=== PATIENT | female | born 1940 | race Native Hawaiian/Other Pacific Islander ===

== ENCOUNTER 2019-03-05 07:45 | Day surgery (SDC) | payer OTHER ==
[~2019-03-05] VITALS: Ht 170.2 cm; Wt 80.7 kg
== END 2019-03-05 09:28 | disposition home or self-care (01) ==
LOC: OR 07:45
PROC: 3E0U33Z Introduction of Anti-inflammatory into Joints, Percutaneous Approach (ICD-10-PCS; principal; 2019-03-05)
PROC: 3E0U3BZ Introduction of Anesthetic Agent into Joints, Percutaneous Approach (ICD-10-PCS; 2019-03-05)
DX: M53.3 Sacrococcygeal disorders, not elsewhere classified (principal); M46.1 Sacroiliitis, not elsewhere classified
CPT/HCPCS: J1020; J3490

== ENCOUNTER 2019-09-23 08:34 | Day surgery (SDC) | payer OTHER ==
[~2019-09-23] VITALS: Ht 170.2 cm; Wt 79.4 kg
== END 2019-09-23 10:30 | disposition home or self-care (01) ==
LOC: OR 08:34
PROC: 3E0T3TZ Introduction of Destructive Agent into Peripheral Nerves and Plexi, Percutaneous Approach (ICD-10-PCS; principal; 2019-09-23)
PROC: BR16YZZ Fluoroscopy of Lumbar Facet Joint(s) using Other Contrast (ICD-10-PCS; 2019-09-23)
DX: M47.817 Spondylosis without myelopathy or radiculopathy, lumbosacral region (principal)
CPT/HCPCS: J2001

== ENCOUNTER 2019-10-07 09:22 | Day surgery (SDC) | payer OTHER | END 2019-10-07 10:57 | disposition home or self-care (01) | LOC: OR 09:22 | PROC: 3E0T3TZ Introduction of Destructive Agent into Peripheral Nerves and Plexi, Percutaneous Approach (ICD-10-PCS; principal; 2019-10-07) | PROC: BR16YZZ Fluoroscopy of Lumbar Facet Joint(s) using Other Contrast (ICD-10-PCS; 2019-10-07) | DX: M47.817 Spondylosis without myelopathy or radiculopathy, lumbosacral region (principal) | CPT/HCPCS: J2001 ==

== ENCOUNTER 2020-06-08 07:56 | Day surgery (SDC) | payer OTHER ==
[~2020-06-08] VITALS: Ht 30.5 cm; Wt 0.5 kg
== END 2020-06-08 09:15 ==
LOC: OR 07:56
PROC: 3E0R33Z Introduction of Anti-inflammatory into Spinal Canal, Percutaneous Approach (ICD-10-PCS; principal; 2020-06-08)
PROC: B01BYZZ Fluoroscopy of Spinal Cord using Other Contrast (ICD-10-PCS; 2020-06-08)
DX: M50.123 Cervical disc disorder at C6-C7 level with radiculopathy (principal)
CPT/HCPCS: J1020